=== PATIENT | male | born 1965 ===

== ENCOUNTER 2018-10-27 18:27 | Emergency (ER) | payer SELFPAY ==
[2018-10-27 18:30] VITALS: BP 138/84; PULSE 72; RESP 20; TEMP 36.8; O2SAT 100
--- NOTE | 2018-10-27 18:49 | NUR.NOTE ---
Mental health worker in with ptNursing Note:
--- NOTE | 2018-10-27 19:31 | ED.GENADUL_ITS ---
Discharge Plan Disposition Patient Disposition: HOME Condition: Good Discharge Details Chief Complaint: PsychEval Clinical Impression: Worried well, Acute paranoia Primary Care Provider: Rosaura Landis ED Provider: Hernando Gonzalez Home Meds and New Rx's Prescriptions: No Action No Known Home Meds RF: 0 Discharge Instructions Instructions: Anxiety (ED) Additional Instructions: As we discussed together please answer the door when over the mental health worker comes to your house. Please contact your insurance group for your medications. Please follow-up with your mental health advisors as he stated he would. If you notice any worsening of your symptoms, or any new symptoms such as vomiting, diarrhea, fever, chills, shortness of breath, chest pain, numbness, weakness, or fainting , please return immediately to the emergency department for reevaluation. Please follow up with your primary care provider as soon as possible for reassessment and reevaluation. As always, it was a pleasure participating in your medical care today. Referrals: Rosaura Landis, CIRCULAR DISTRIBUTOR [Primary Care Provider] - Medical Decision Making This is a 53-year-old male with past medical history of schizophrenia who presents today for evaluation by court ordered evaluation. Brought in by police. Patient came willingly, with no complication, apprehension, or difficulty. Mental health stated on an outpatient basis that he was eating less, not taking his medications. The patient does demonstrate some paranoia stating that he is worried that some food might be poisoned however he is still eating, most recent meal was this morning which was a peanut butter and jelly sandwich which he said he had with no difficulty. He states he is willing to still eat, but is just cautious about the things that he eats. The patient denies any homicidal or suicidal ideations. He states that he does not want to take his medications secondary to concerns of insurance fraud and chronic card fraud for which she has had issues with in the past. Patient does not feel that anyone is chasing after him, that there are third parties out to get him, that there are any other components endangering his life. He states that he feels very safe at home, and has no significant apprehension while at home. He denies any nausea, vomiting, diarrhea, headache, neck pain, back pain, chest pain, shortness of breath, numbness, tingling, or weakness. Physical exam demonstrates normal neurologic exam, no evidence of cachexia, no evidence of si gnificant electrolyte abnormality with a negative Chvostek sign, no evidence of tetany or spasm, and no signs of clinical dehydration or significant malnourishment. The patient is asking to hold off on blood test and less emergently needed, and at this time I do not see any emergent indication for further laboratory workup. He is a and O x4, shows no signs of acute severe paranoia, severe schizophrenia, or severe altered mental status. With no signs of severe mental instability, a very pleasant patient who is willing to follow any of our requests or demands, showing no signs of significant abnormality on exam or current clinical picture, I do not think that mandated forced EE is clinically indicated or warranted at this time. Although patient certainly does have some very mild paranoia, he is otherwise completely normal and his mental status, and at this time shows no present harm to himself or others. Feel that he is well within his personal rights to make his decisions. [facility] has come and evaluated the patient, and will follow up with their recommendations. 8:16 PM The patient has been seen and assessed by [facility]. Upon their assessment they do do not feel that there is a current medical or mental indication for emergency evaluation and forced transfer management or admission. The patient continues to be stable, pleasant, and follows all commands or requests. He at this time does not pose a risk to himself or others per his stated thoughts and clinical disposition. The patient states that he will very willingly see mental health when they come to his house, contact his insurance company to take care of any problem number and eat food that is given to him. He with his follow-up with his doctor on an outpatient basis. The patient is currently clinically safe, and shows no emergent psychiatric component at this time of evaluation I feel he can be safely discharged home. Mental health agrees with the plan. I have extensively reviewed the treatment plan and discharge instructions with the patient. I have addressed all patient concerns at this time. The patient was made aware of what symptoms to monitor for that would warrant a return to the emergency department. Discussed the plan with the patient, they demonstrate verbal understanding and agreement with our assessment and plan at this time. HPI General Date/Time Provider Initiated Documentation: 10/27/18 18:57 . HPI Narrative: This is a 53-year-old male with a past medical history of schizophrenia, who presents today for psychiatric evaluation. Per his outpatient mental health advocates he has been decreasing what he normally eats at home, he has been slightly more paranoid than normal, and he has been not taking his home medications. A court order was written for the patient to be brought in by police for evaluation in the ED by mental health. The patient came without incident or difficulty. Currently the patient has no complaints whatsoever. He denies any homicidal or suicidal ideations. He does admit to some mild nervousness with the eating stating that he is worried that food in general may be poison, however he does feel very comfortable eating peanut butter and jelly. He recently had a peanut butter and jelly sandwich this [facility] without difficulty. He states that he has not been taking his medications because he is worried that if he does try to purchase them or utilize his insurance there may be concern for mild insurance fraud or credit card fraud as he has had financial problems in the past. He does not fear fearful, he states that he does not feel that anyone is out to get him, he feels safe in his home, and he is extremely cooperative. He denies any other complaints at this time. No other modifying factors. Related Data Home Medications Medication Instructions Recorded Confirmed Unknown [No Known Home Meds] 10/27/18 10/27/18 Allergies Allergy/AdvReac Type Severity Reaction Status Date / Time Penicillins Allergy Unverified 10/27/18 18:33 General Stated Complaint: PsychEval KAREN: 2 Review of Systems Review of Systems All systems reviewed & are unremarkable except as noted in HPI and below PFSH Social History Smoking/Tobacco Use Status: Current every day Alcohol Intake: never Substance use type: does not use Do you feel safe at home: Yes Do you feel safe in your relationship?: Yes Exam Narrative Exam Narrative: 1.Const: thin, Well-developed, appearing stated age 2.Eyes: PERRL, no conjunctival injection, and symmetrical lids. 3.ENT: Atraumatic external nose and ears. Moist MM. Neck: Symmetric, trachea midline, No thyromegaly. 4.CVS: +S1/S2, No murmurs or gallops. Peripheral pulses 2+ and equal in all extremities. Brisk capillary refill in all extremities. 5.RESP: Unlabored respiratory effort. Clear to auscultation bilaterally. No wheezes rales or rhonchi 6.GI: Soft, Nontender/Nondistended, No hepatosplenomegaly. No guarding or rebound. 7.MSK: Normocephalic/Atraumatic, Extremities w/o deformity or ttp No cyanosis or clubbing, Normal movement of all extremities 8.Skin: Warm, Dry. No rashes or lesions. 9.Neuro: test and research reactor operator II-XII grossly intact. Sensation grossly intact, no focal neurologic deficits. No signs of focal neurologic deficit, no significant abnormalities. 10.Psych: (AAO) x3. Patient does appear minimally nervous however he has no homicidal or suicidal ideations. No flight of ideas, pressured speech, perseverations, or other abnormalities. Course Vital Signs Temperature 36.8 C 10/27/18 18:30 Pulse 72 10/27/18 18:30 Respiratory Rate 20 10/27/18 18:30 Blood Pressure 138/84 10/27/18 18:30 Pulse Oximetry 100 10/27/18 18:30 Temperature 36.8 C 10/27/18 18:30 Pulse 72 10/27/18 18:30 Respiratory Rate 20 10/27/18 18:30 Respiratory Effort Non-Labored 10/27/18 18:30 Blood Pressure 138/84 10/27/18 18:30 Pulse Oximetry 100 10/27/18 18:30 Oxygen Delivery Method Room Air 10/27/18 18:30 Oxygen Flow Rate 0 10/27/18 18:30 Pain Level 0 10/27/18 18:30
--- NOTE | 2018-10-27 19:52 | PDOC.MHCN ---
Date of service: 10/27/18 Time of Service: 19:53 Mental Health Crisis Note Presenting Issue How did you arrive at the ED and why did you come: Ciro arrived at the emergency room at [facility] due to a warrant that was filed in [facility]. Ciro lives in [place] just past the cut-off line for [employer] to get. Ciro has a history of major mental illness and has been off of medication. Questions of the medical and psychological health have progressed for several months and a warrant was signed by a mine shifter to look into the concerns that neglecting certain parts of his daily living routine could potentially present risks of harm to himself or others. Precipitating Factors Ciro denies that he is suicidal or homicidal at this time. He denies having any recent history of mental health issues as he reports his last psychological hospitalization was 12 years ago. Historically he has been a stable consumer of METAL ROLLING MILL OPERATOR services at [facility]. Ciro did present with signs of paranoia when discussing his health insurance and reason for not running water in his house. However, when discussing concerns of the running water and need for health insurance, he was able to agree that getting the health insurance back and the pipes fixed could be a good opportunity to address the concerns. He also confirmed his understanding that if he continues to neglect his needs through continuing to not run water and/or preventing himself from having health insurance could lead to another evaluation that could have a firmer line and level of expectations of treatment engagement. He denies auditory or visual hallucinations. He reported that he identified the METAL ROLLING MILL OPERATOR worker as an alien because she was new to him and he had never seen her before. Therefore, memory recall of immediate and recent events was fair. He also reported hearing other noises at times that disrupt him like dogs and roosters. After consulting with the doctor, it was determined that there are not any immediate risks of his mental health or medical stability at this time to require further involuntary treatment at this time. Disposition BEHAVIOR: cooperative, low voice tone, slightly tangential in thought, but able to make associations of ideas. EYE CONTACT: fair MOOD: depressed AFFECT: flat APPETITE: poor SLEEP(trouble falling/staying asleep: reports five to six hours per night Plan Ciro will return to his home. He will let METAL ROLLING MILL OPERATOR workers in his house to talk with him. He agrees to get his health insurance back with a rn case manager hospice to help him get that need addressed. He also reports he will see his psychiatrist earlier to discuss his reasons for stopping the Abilify. [facility] will continue to monitor Bill and/or follow-up with him as needed to help him get back on track with treatment. Signature Clinician's Name/Title: Zion Douglas [facility]
--- NOTE | 2018-10-27 20:08 | PDOC.MHCN_ITS ---
Date of service: 10/27/18 Time of Service: 19:53 Mental Health Crisis Note Presenting Issue How did you arrive at the ED and why did you come: Ciro arrived at the emergency room at [facility] due to a warrant that was filed in [facility]. Ciro lives in [place] just past the cut-off line for [place] [facility] to get. Ciro has a history of major mental illness and has been off of medication. Questions of the medical and psychological health have progressed for several months and a warrant was signed by a registration clerk to look into the concerns that neglecting certain parts of his daily living routine could potentially present risks of harm to himself or others. Precipitating Factors Ciro denies that he is suicidal or homicidal at this time. He denies having any recent history of mental health issues as he reports his last psychological hospitalization was 12 years ago. Historically he has been a stable consumer of REGIONAL EDUCATION COORDINATOR services at [facility]. Ciro did present with signs of paranoia when discussing his health insurance and reason for not running water in his house. However, when discussing concerns of the running water and need for health insurance, he was able to agree that getting the health insurance back and the pipes fixed could be a good opportunity to address the concerns. He also confirmed his understanding that if he continues to neglect his needs through continuing to not run water and/or preventing himself from having health insurance could lead to another evaluation that could have a firmer line and level of expectations of treatment engagement. He denies auditory or visual hallucinations. He reported that he identified the REGIONAL EDUCATION COORDINATOR worker as an alien because she was new to him and he had never seen her before. Therefore, memory recall of immediate and recent events was fair. He also reported hearing other noises at times that disrupt him like dogs and roosters. After consulting with the doctor, it was determined that there are not any immediate risks of his mental health or medical stability at this time to require further involuntary treatment at this time. Disposition BEHAVIOR: cooperative, low voice tone, slightly tangential in thought, but able to make associations of ideas. EYE CONTACT: fair MOOD: depressed AFFECT: flat APPETITE: poor SLEEP(trouble falling/staying asleep: reports five to six hours per night Plan Ciro will return to his home. He will let REGIONAL EDUCATION COORDINATOR workers in his house to talk with him. He agrees to get his health insurance back with a pillowcase sewer to help him get that need addressed. He also reports he will see his psychiatrist earlier to discuss his reasons for stopping the Abilify. [facility] will continue to monitor Bill and/or follow-up with him as needed to help him get back on track with treatment. Signature Clinician's Name/Title: Zion Douglas [facility]
[2018-10-27 20:32] VITALS: BP 115/79; PULSE 67; RESP 16; TEMP 36.7; O2SAT 98
--- NOTE | 2018-10-28 08:01 | PDOC.ERCMPRO ---
Care Management Progress Note 10/28-Ronak was transported home by [facility] last evening. This CM completed RCT authorization form (patient does not have insurance) and faxed to [facility] this am. [facility] will pay for the transportation.
--- NOTE | 2018-10-28 08:02 | CMPROGNOTE_ITS ---
Care Management Progress Note 10/28-Ronak was transported home by [facility] last evening. This CM completed RCT authorization form (patient does not have insurance) and faxed to [facility] this am. [facility] will pay for the transportation.
== END 2018-10-27 20:30 | disposition home or self-care (01) ==
PROVIDERS: Emergency Provider Student in an Organized Health Care Education/Training Program; PCP Nurse Practitioner Family
DX: F22 Delusional disorders (principal); F41.9 Anxiety disorder, unspecified
CPT/HCPCS: 99285; 99284

== ENCOUNTER 2019-10-05 19:11 | Emergency (ER) | payer MEDICARE, SELFPAY ==
[2019-10-05 19:31] VITALS: BP 137/97; PULSE 73; RESP 16; TEMP 36.2; O2SAT 100
[2019-10-05] MEDS: LORazepam 2 MG/ML VIAL IM (19:31)
[2019-10-05] MEDS: diphenhydrAMINE 50 MG/ML VIAL 25 MG IM (19:31)
[2019-10-05] MEDS: Haloperidol 5 MG/ML VIAL IM (19:31)
--- NOTE | 2019-10-05 20:03 | PDOC.MHCN ---
Date of service: 10/05/19 Time of Service: 20:03 Mental Health Crisis Note Presenting Issue How did you arrive at the ED and why did you come: W arrived tonight via [facility] after a warrant was completed by [facility], Jed Elias. Rc signed the warrant and [facility] delivered to VS. Sgt Diana gathered a team and went to Zabrina's home to bring him to [facility] because he lives in [place]. Precipitating Factors W is a safety risk to himself due to her paranoia, delusions, and hallucinations. He has not eaten properly, if at all in an unknown span of time even with 3 times a week check in's and delivery of food and water. ENVIRONMENTAL ENGINEER Nurse, Rosario Benson reported that w has lost anywhere from 75-100lbs. Because of his mental status he puts himself at risk of harm due to malnourishment. Disposition BEHAVIOR: W came into the the ER with 3 [facility] troopers. It was reported that he was not cooperative when coming to [facility] and all 3 stayed with him. He was loud upon entering as there were many waiting for his arrival due to the reports of not being cooperative. He was stating Hello! Bojour everyone. He refused to accept his patient rights that were offered to him by this clinician. He was borderline disrespectful making comments about roselissett and making reference to this clinicians weight. He was physically and then chemically restrained. EYE CONTACT: W attempted to make eye contact but it was challenging for him to do so while restrained. MOOD: delusional and inappropriate. AFFECT: flat and non responsive APPETITE: paranoid about food so intake has likely been limited if any. SLEEP(trouble falling/staying asleep: unknown Plan W is placed on an EE and will be held pending admission to an inpatient facility to address his psychiatric needs. A huddle was had with Dot Net Developer, Mariel Gonzalez with traditional limitations for the evening. ENVIRONMENTAL ENGINEER will re-assess tomorrow as needed and required. W is still being medically cleared when I left. Provisional Diagnosis Schizophrenia Signature Clinician's Name/Title: Arin Fuentes, MS, [facility] Emergency Services Clinician
--- NOTE | 2019-10-05 20:06 | W.EDRSTF2F ---
Date of service: 10/05/19 Time of Service: 20:06 Restraint Face to Face Time of Face to Face Face to Face: Time of Face to Face: 20:07 Patient's Immediate Situation Requiring Restraints/Seclusion: Harm to Patient (Patient was a danger to himself and staff and others) Patient Response to Restraints: Remains Agitated and Restless Patient's Medical & Behavioral Condition: Patient is a notable schizophrenic, with delirium. He is a harm to himself and others. For the patient safety he did not tolerate the physical restraints, was concerned that he may harm himself. Chemical restraint was used for sedation. Patient tolerated this well. Physical restraints were stopped Need for Continuation of Restraints Has Been Assessed: Restraints Terminated
--- NOTE | 2019-10-05 20:10 | CMSP_ITS ---
- If Service Date Differs Date of service: 10/05/19 Time of Service: 20:11 Care Management Safety Plan Ronak Dobbins is a 54 year old gentleman with a history of schizophrenia and is receiving services through [facility] ([facility]ILY [facility]) through the [place] office. Patient was brought to [facility] as he is a resident of [place], [place]. Per [facility] he was brought in by three [facility] Police officers on a Warrant originating in [facility].According to [facility] patient has lost a lot of weight, he has not been caring for self, and has been delusional. CM reviewed patient with patient arrives cachetic, agitated, disoriented and delusional. Due to risk to self the patient was restrained please see restraint documentation. Patient is not medically cleared at this time and will need a work up for medical clearance prior to psychiatric placement. INVOLUNTARY FOR INPATIENT PSYCHIATRIC STABILIZATION. Safety plan has been established to meet the needs of the patient, and consideration of the care team, to adhere to patient goals, identify restrictions based on behavioral status, address nutrition, and determine allowed personal belongings, tools for hygiene and personal care. Determine level of activity including ambulation, level of supervision, visitors, and determine privileges based on behaviors and level of engagement by pt. SAFETY PLAN: 1. Will remain on SI/HI precautions. In Paper Clothes 2. Will remain in room under direct supervision of one-on-one staff at all times provided by [employer]; RENETTA, ROAD GANG SUPERVISOR editor index. Per [facility] patient has a history of elopement and is at risk for repeat attempt. 3. May have paper cups, plates, finger foods as well as a cardboard spoon 4. Follow [facility] Management of the Admitted Behavioral Health Patient policy. 5. Comfort bath system only. 6. No personal belongings 7. Visitors-legal account manager sales representative, [facility]ARDIAN FAMILY MEMBER, X Ray Equipment Mechanic 8. Activities: Soft tip markers, paper, books, and music. 9. Bathroom privileges with supervision 10. Phone: None at this time 11. Due to INVOLUNTARY status, if patient wishes to leave [facility], the [facility] draw off worker must be contacted to re-evaluate patient prior to patient exiting the building. Patient is currently involuntarily at [facility] and seeking inpatient admission when a bed becomes available. [facility] Frontline Script Supervisor will continue seeking placement. Please contact the Magazine Keeper Granite Polisher ([phone]) and [facility] Script Supervisor ([phone]) for any needed changes in the Safety Plan. Safety plan has been provided to interdepartmental care team.
--- NOTE | 2019-10-05 20:10 | PDOC.CMSAFED ---
- If Service Date Differs Date of service: 10/05/19 Time of Service: 20:11 Care Management Safety Plan Ronak Dobbins is a 54 year old gentleman with a history of schizophrenia and is receiving services through [facility] Community Restorative Treatment (CORPORATE WEBMASTER) through the [place] office. Patient was brought to [facility] as he is a resident of [place], [place]. Per [facility] he was brought in by three [facility] Police officers on a Warrant originating in [facility].According to [facility] patient has lost a lot of weight, he has not been caring for self, and has been delusional. CM reviewed patient with patient arrives cachetic, agitated, disoriented and delusional. Due to risk to self the patient was restrained please see restraint documentation. Patient is not medically cleared at this time and will need a work up for medical clearance prior to psychiatric placement. INVOLUNTARY FOR INPATIENT PSYCHIATRIC STABILIZATION. Safety plan has been established to meet the needs of the patient, and consideration of the care team, to adhere to patient goals, identify restrictions based on behavioral status, address nutrition, and determine allowed personal belongings, tools for hygiene and personal care. Determine level of activity including ambulation, level of supervision, visitors, and determine privileges based on behaviors and level of engagement by pt. SAFETY PLAN: 1. Will remain on SI/HI precautions. In Paper Clothes 2. Will remain in room under direct supervision of one-on-one staff at all times provided by CPSO; RENETTA, SEARCH LEAD reel operator. Per [facility] patient has a history of elopement and is at risk for repeat attempt. 3. May have paper cups, plates, finger foods as well as a cardboard spoon 4. Follow [facility] Management of the Admitted Behavioral Health Patient policy. 5. Comfort bath system only. 6. No personal belongings 7. Visitors-legal sales representative metals, CORPORATE WEBMASTER, Human Resources Communications Manager 8. Activities: Soft tip markers, paper, books, and music. 9. Bathroom privileges with supervision 10. Phone: None at this time 11. Due to INVOLUNTARY status, if patient wishes to leave [facility], the [facility] powder worker must be contacted to re-evaluate patient prior to patient exiting the building. Patient is currently involuntarily at [facility] and seeking inpatient admission when a bed becomes available. [facility] Frontline Tenderizer Tender will continue seeking placement. Please contact the Mechanical Engineering Intern Historian Dramatic Arts ([phone]) and [facility] Tenderizer Tender ([phone]) for any needed changes in the Safety Plan. Safety plan has been provided to interdepartmental care team.
--- NOTE | 2019-10-05 20:50 | ED.GENADUL_ITS ---
Discharge Plan Disposition Patient Disposition: STILL A PATIENT Condition: Poor Discharge Details Chief Complaint: PsychEval Clinical Impression: Schizophrenia Primary Care Provider: Rosaura Landis ED Provider: Hernando Gonzalez Home Meds and New Rx's Prescriptions: No Action No Known Home Meds RF: 0 Discharge Data Discharge Date/Time-TO BE ENTERED AT DEPARTURE: 10/07/19 18:25 Medical Decision Making <Erick Stahl MD - Last Filed: 10/17/19 23:41> Patient in restraints and chemically sedated at the time of my evaluation. Still awake and somewhat agitated so left in restraints for the time being. I have reviewed records from his warrant. He is clearly decompensated to the point where he is unable to care for himself or be safe. He is completely emaciated. My plan will be to discontinue his restraints once he is sedated enough to be safe. Will obtain laboratory studies. Will file certificate of emergency exam for consideration of involuntary admission. Mental health is here. manager medical aware and safety plan in place. CPSO present. Note that during patient being taken into custody there was some question of a trooper coming into contact with patient's blood from a open injury on the trooper's hand. [place] was evaluated here in ED. I will send labs on this patient as a source patient. At 9:30 PM we were able to discontinue physical restraints. Laboratory studies have been obtained. Results will be reviewed when available. Will attempt to restart his Abilify in the morning. 08:20 - Patient slept the entire night. This morning he is awake and eating breakfast. Seems to understand that he will be here for further evaluation and understands that his behavior will determine use of restraints or not. Attempted conversation regarding use of restraints last night. Patient still has a lot of illogical and delusional thinking but is calm and cooperative at this point. Has agreed to restart his Abilify this morning. Care signed out to Dr. Ford. Medical Records Medical records reviewed: Yes I reviewed the patient's medical records. Lab Data Lab results reviewed: Yes I reviewed the patient's lab results. <Can Ford MD - Last Filed: 10/06/19 19:34> 8:00 --care signed out by Dr. Stahl. Please see Dr. Stahl and Dr. Gonzalez's documentation regarding initial ED presentation and course. --Labs reviewed and mild hypokalemia noted. Patient also with mild anemia. I suspect malnutrition may be contributing to these findings. Patient will be given potassium 20 mEq orally. 18:30 --I spoke with on-call department mental health psychiatrist about patient's presentation and my concerns regarding need for ED evaluation. 19:30 -- Patient has remained stable and cooperative during the course of the day with no agitation or aggression. Awaiting psychiatric treatment facility placement. HPI <Erick Stahl MD - Last Filed: 10/17/19 23:41> General Mode of arrival: EMS . Date/Time Provider Initiated Documentation: 10/05/19 20:05 . Information obtained by: patient, police, RN/MD (mental health workers), RN notes reviewed and old records reviewed . HPI Narrative: Patient is here for mental health evaluation. He is a client of [facility]/[employer]. He had been stable for years on Abilify. Over the last year he has been off his medication and has been steadily declining and decompensating. At this point he is extremely paranoid, refuses to eat, refuses to allow medical or [employer] into his house. Forest Fire Management Officer issued a warrant today for emergency evaluation. He was combative with police and refused evaluation. He was eventually brought in by police in cuffs. On his arrival he was initially seen by Dr. Gonzalez. He ultimately ended up in four-point restraints and received Haldol/Ativan/Benadryl IM. Please see Dr. Gonzalez's byub-dl-ryuj note regarding restraint use. When I evaluated the patient he was still awake and a little agitated. I was able to have a discussion with him although it was not meaningful and was extremely tangential, random, nonsensical. Related Data Home Medications Medication Instructions Recorded Confirmed Unknown [No Known Home Meds] 10/27/18 10/27/18 Allergies Allergy/AdvReac Type Severity Reaction Status Date / Time Penicillins Allergy Unverified 10/27/18 18:33 General Stated Complaint: PsychEval KAREN: 2 Review of Systems <Erick Stahl MD - Last Filed: 10/17/19 23:41> Unobtainable due to mental condition PFS <Erick Stahl MD - Last Filed: 10/17/19 23:41> Medical History Schizophrenia (Chronic) Surgical History No significant past surgical history (Chronic) Social History Smoking/Tobacco Use Status: Current every day Alcohol Intake: never Substance use type: does not use Do you feel safe at home: Yes Do you feel safe in your relationship?: Yes Exam <Erick Stahl MD - Last Filed: 10/17/19 23:41> Narrative Exam Narrative: Vitals: Afebrile. Mildly hypertensive. Normal vitals and room air pulse oximetry. Const: Thin, emaciated male in four-point restraints. HEENT: Abrasions noted to forehead and face. No bony tenderness elicited. Eyes: Normal conjunctiva and sclera. PERRL and EOMI. Neck: Supple. Trachea midline. Lungs: Normal respiratory effort. Lungs are clear. Chest wall non-tender. Cor: RRR without murmur/gallop. Good radial pulses. GI: Soft. NT/ND. No guarding or rebound. Neuro: Awake and alert, not cooperative with orientation questions but knows who he is and where he is. Normal speech. Cranial nerves II - XII grossly intact. No gross motor or sensory deficit. Ext: No C/C/E. No deformity or tenderness noted. Skin: Warm and dry. Multiple abrasions on face and upper extremities. No lacerations. Psych: Paranoid, tangential, nonsensical with no insight or judgment into condition. Course <Erick Stahl MD - Last Filed: 10/17/19 23:41> Vital Signs Vital signs: Vital Signs Temperature 97.2 F L 10/05/19 19:31 Pulse 73 10/05/19 19:31 Respiratory Rate 16 10/05/19 19:31 Blood Pressure 137/97 H 10/05/19 19:31 Pulse Oximetry 100 10/05/19 19:31 Temperature 97.2 F L 10/05/19 19:31 Pulse 73 10/05/19 19:31 Respiratory Rate 16 10/05/19 19:31 Respiratory Effort Non-Labored 10/05/19 19:46 Blood Pressure 137/97 H 10/05/19 19:31 Blood Pressure Position Supine 10/05/19 19:31 Pulse Oximetry 100 10/05/19 19:31 Oxygen Delivery Method Room Air 10/05/19 19:31 Oxygen Flow Rate 0 10/05/19 19:31 Comment 10/05/19 19:31 Sign Out <Erick Stahl MD - Last Filed: 10/17/19 23:41> Sign Out Data: Sign Out Comment: Pending placement to psychiatric facility versus admitting upstairs while waiting second cert Last updated by Erick Stahl MD at 10/06/19 08:25 Sign Out Comment: Care signed out to Dr. Stahl with plan to await psychiatric treatment facility bed placement. Last updated by Can Ford MD at 10/06/19 20:04 Sign Out Comment: No events overnight. Patient slept without issue. Ambulatory this morning awaiting placement at psychiatric facility. Last updated by Erick Stahl MD at 10/07/19 08:23
[2019-10-05 21:30] LABS: Abs Immature Grans 0.02 k/cumm (0.0-0.09); Absolute Basophil Count 0.01 k/cumm (0.0-0.2); Absolute Eosinophil Count 0.03 k/cumm (0.0-0.7); Absolute Lymphocyte Count 1.03 k/cumm (1.2-3.4); Absolute Monocyte Count 0.27 k/cumm (0.11-0.7); Absolute Neutrophil Count 3.06 k/cumm (1.2-6.7); Basophils % 0.2; Eosinophils % 0.7; HCT 33.4 % (40.0-50.0); HGB 11.4 g/dL (13.5-17.5); Immature Grans % 0.5 %; Lymphocytes % 23.3; Mean Corp. HGB Concentration 34.1 g/dL (32.0-36.0); Mean Corpuscular Hemoglobin 30.4 pg (27.0-33.0); Mean Corpuscular Volume 89.1 fL (80-95); Mean Platelet Volume 9.4 fL (8.0-11.0); Monocytes % 6.1; Neutrophils % 69.2; Platelet Count 175 x1000/uL (130-400); RBC 3.75 m/cumm (4.50-6.00); White Blood Cell Count 4.42 k/cumm (4.4-10.8)
[2019-10-05 21:53] LABS: HIV 1/2 Ab Rapid Negative (Negative)
[2019-10-05 21:59] LABS: ALT 20 U/L (16-63); AST 25 U/L (15-37); Albumin 3.8 g/dL (3.4-5.0); Alkaline Phosphatase 63 U/L (46-116); Anion Gap 7.9 mmol/L (3-11); BUN 18 mg/dL (7-18); Bilirubin, Total 0.4 mg/dL (0.2-1.0); CO2 26.1 mmol/L (21.0-32.0); CREATININE 0.87 mg/dL (0.70-1.30); Calcium 8.8 mg/dL (8.5-10.1); Chloride 104 mmol/L (98-107); ETHANOL BLOOD < 3.0 mg/dL (<3); Glucose 111 mg/dL (74-106); Potassium 3.3 mmol/L (3.5-5.1); Sodium 138 mmol/L (136-145); TSH (W/Ref FT4) 2.56 uIU/mL (0.36-3.74); Total Protein 6.5 g/dL (6.4-8.2)
[2019-10-05 22:34] VITALS: PULSE 64; RESP 16; O2SAT 99
[2019-10-05 23:00] LABS: Salicylate < 2.8 mg/dL (2.8-20.0)
[2019-10-05 23:01] LABS: Acetaminophen < 2 ug/mL (10-30)
--- NOTE | 2019-10-06 02:13 | NUR.NOTE ---
Nursing Note: Requested information faxed to [facility] fatoumata Suarez for review, including demographics, H&P. UA/UDS not yet obtained, will send when resulted.
[2019-10-06] MEDS: ARIPiprazole 15 MG TAB PO (08:33)
[2019-10-06 09:08] LABS: Bilirubin Small (Negative); Blood Negative (Negative); Clarity Clear (Clear); Glucose Negative (Negative); Ketones Trace mg/dL (Negative); Leukocyte Esterase Negative (Negative); Nitrite Negative (Negative); Specific Gravity >= 1.030 (1.005-1.025); Urobilinogen 0.2 EU/dL (Up TO 0.2)
[2019-10-06 09:24] LABS: *AMPHETAMINES SCREEN URINE Negative (Negative); *BARBITURATES SCREEN URINE Negative (Negative); *BENZODIAZEPINES SCREEN URINE Negative (Negative); Cannabinoids THC Negative (Negative); Cocaine Screen,Urine Negative (Negative); METHADONE URINE SCREEN Negative (Negative); OPIATES URINE SCREEN Negative (Negative)
[2019-10-06 09:26] LABS: Tricyclic Antidepressants Negative (Negative)
--- NOTE | 2019-10-06 09:26 | CMSP_ITS ---
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 Per HP he was brought in by three [facility] Police officers on a Warrant originating in [facility], but is a current resident of [place], [place]. Assessment: Weight loss, self-neglect, presenting with ongoing delusional thoughts. Patient arrived cachetic, agitated, disoriented and delusional. Patient is not medically cleared at this time and will need a work up for medical clearance prior to psychiatric placement. 0845 Curt, [facility] called to report he would follow up and let this automatic typewriter inspector know who would be screening Ronak today and working on placement. 1045 Shukri[facility]. Shukri reported that attempts have been made to EE Ronak for some time due to living condition concerns and presentation, also that Ronak has not been taking medications for the last 13 months. Shukri reports that Ronak became aggressive with police officers last night which supported INVOLUNTARY status and hold. Ronak has lost weight even with meal delivered and has paranoid thoughts disrupting his functioning. 1100 Huddle: Shukri reports assessment was limited due to Ronak hiding under a sheet in the room. 1140 Shukri called to report speaking with Purvi Benson [facility] Psychiatric audit manager (P# [phone]) who requested stat A1C Hemoglobin to provide to [facility] and [facility] to encourage patient admission. Purvi is reportedly working Ewelina Hyaes at [facility]. Shukri reports once available, lab values will need to be faxed to Purvi. Shukri reports 2nd Certification will take place at 1800 tonight. INVOLUNTARY FOR INPATIENT PSYCHIATRIC STABILIZATION. Safety plan has been established to meet the needs of the patient, and consideration of the care team, to adhere to patient goals, identify restrictions based on behavioral status, address nutrition, and determine allowed personal belongings, tools for hygiene and personal care. Determine level of activity including ambulation, level of supervision, visitors, and determine privileges based on behaviors and level of engagement. Ronak ate breakfast, read the paper and slept through the night. He did not fully engage with EBONY Watt of [facility], but did present with ongoing delusion thoughts per Shukri's report. His safety plan will continue to be limited at this time for a period of further observation due to original presentation. SAFETY PLAN: 1. Will remain on SI/HI precautions. In Paper Clothes 2. Will remain in room under direct supervision of one-on-one staff at all times provided by CPSO; RENETTA, CUSTOMER CARE REPRESENTATIVE metal fence erector. Per [facility] patient has a history of elopement and is at risk for repeat attempt. 3. May have paper cups, plates, finger foods as well as a cardboard spoon 4. Follow [facility] Management of the Admitted Behavioral Health Patient policy. 5. Comfort bath system only. 6. No personal belongings 7. Visitors-legal brand representative, ACTIVITIES CONCIERGE, Prepress Proofer 8. Activities: Soft tip markers, paper, books, and music. 9. Bathroom privileges with supervision 10. Phone: limited to legal contact at this time. 11. Due to INVOLUNTARY status, if patient wishes to leave [facility], the [facility] sex worker or escort must be contacted to re-evaluate patient prior to patient exiting the building. Patient is currently involuntarily at [facility] and seeking inpatient admission when a bed becomes available. [facility] Frontline Investigator Internal Revenue will continue seeking placement. Per Shukri; HP: Bed Placement Coordination as follows: [facility]: No Beds [facility] [place]: Will review again tomorrow. [facility]: Will review tomorrow. [facility]: Will not consider until voluntarily taking medications. [facility]: Did not answer per [facility]. [facility] Missile Control Pilot, Janette is aware as well as Ewelina Hayes. [facility] will provide coordination and funding of transportation through the Meal Room Hand's Dept due to INVOLUNTARY status. Please contact the Registered Nurse Surgical Services Missile Control Pilot ([phone]) and [facility] Investigator Internal Revenue ([phone]) for any needed changes in the Safety Plan. Safety plan has been provided to interdepartmental care team.
--- NOTE | 2019-10-06 09:26 | PDOC.CMSAFED ---
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 Per HP he was brought in by three [facility] Police officers on a Warrant originating in [facility], but is a current resident of [place], [place]. Assessment: Weight loss, self-neglect, presenting with ongoing delusional thoughts. Patient arrived cachetic, agitated, disoriented and delusional. Patient is not medically cleared at this time and will need a work up for medical clearance prior to psychiatric placement. 0845 Curt, [facility] called to report he would follow up and let this development writer know who would be screening Ronak today and working on placement. 1045 Shukri; [facility]. Shukri reported that attempts have been made to EE Ronak for some time due to living condition concerns and presentation, also that Ronak has not been taking medications for the last 13 months. Shukri reports that Ronak became aggressive with police officers last night which supported INVOLUNTARY status and hold. Ronak has lost weight even with meal delivered and has paranoid thoughts disrupting his functioning. 1100 Huddle: Shukri reports assessment was limited due to Ronak hiding under a sheet in the room. 1140 Shukri called to report speaking with Purvi Benson [facility] Psychiatric paper sales manager (P# [phone]) who requested stat A1C Hemoglobin to provide to [facility] and [facility] to encourage patient admission. Purvi is reportedly working Ewelina Hayes at [facility]. Shukri reports once available, lab values will need to be faxed to Purvi. Shukri reports 2nd Certification will take place at 1800 tonight. INVOLUNTARY FOR INPATIENT PSYCHIATRIC STABILIZATION. Safety plan has been established to meet the needs of the patient, and consideration of the care team, to adhere to patient goals, identify restrictions based on behavioral status, address nutrition, and determine allowed personal belongings, tools for hygiene and personal care. Determine level of activity including ambulation, level of supervision, visitors, and determine privileges based on behaviors and level of engagement. Ronak ate breakfast, read the paper and slept through the night. He did not fully engage with EBONY Watt of [facility], but did present with ongoing delusion thoughts per Shukri's report. His safety plan will continue to be limited at this time for a period of further observation due to original presentation. SAFETY PLAN: 1. Will remain on SI/HI precautions. In Paper Clothes 2. Will remain in room under direct supervision of one-on-one staff at all times provided by CPSO; RENETTA, DRAFTER (CAD) ELECTRICAL ancient art curator. Per [facility] patient has a history of elopement and is at risk for repeat attempt. 3. May have paper cups, plates, finger foods as well as a cardboard spoon 4. Follow [facility] Management of the Admitted Behavioral Health Patient policy. 5. Comfort bath system only. 6. No personal belongings 7. Visitors-legal franchise sales representative, EMBEDDED SYSTEMS ENGINEER, Tallier 8. Activities: Soft tip markers, paper, books, and music. 9. Bathroom privileges with supervision 10. Phone: limited to legal contact at this time. 11. Due to INVOLUNTARY status, if patient wishes to leave [facility], the [facility] bottle line worker must be contacted to re-evaluate patient prior to patient exiting the building. Patient is currently involuntarily at [facility] and seeking inpatient admission when a bed becomes available. [facility] Frontline Reimbursement Auditor will continue seeking placement. Per Shukri; HP: Bed Placement Coordination as follows: [facility]: No Beds [facility] [place]: Will review again tomorrow. [facility]: Will review tomorrow. [facility]: Will not consider until voluntarily taking medications. [facility]: Did not answer per [facility]. [facility] Supervisor Prep, Janette is aware as well as Ewelina Hayes. [facility] will provide coordination and funding of transportation through the Rewinder Operator Helper's Dept due to INVOLUNTARY status. Please contact the Tooth Cutter Clutch Supervisor Prep ([phone]) and [facility] Reimbursement Auditor ([phone]) for any needed changes in the Safety Plan. Safety plan has been provided to interdepartmental care team.
[2019-10-06 09:33] LABS: Bacteria Few HPF (Negative); C & S Indicated? No; Casts 0-2 Fine Granular LPF (Negative); Crystals Few Amorphous HPF (Negative); Epithelial Cells Negative HPF (Negative); Mucus Heavy (Negative); Other Cells Rare Renal (Negative); RBC Negative HPF (0-2)
--- NOTE | 2019-10-06 10:13 | PDOC.MHCN ---
Date of service: 10/06/19 Time of Service: 10:13 Mental Health Crisis Note Presenting Issue How did you arrive at the ED and why did you come: Patient was brought to the ED by [facility] on a warrant for Involuntary Hospitalization. Precipitating Factors Patient had not been eating and stating today he believed his food was poisoned. He is diagnosed with Schizophrenia and has not been taking medication for an extended period of time. Disposition BEHAVIOR: Patient was lying in the exam room with a sheet pulled over his head. He refused to make eye contact but answered a few questions before saying he would not answer anymore. He stated he was God when asked if he was eating replied How are you eating. When asked about sleeping replied,How are you sleeping. When asked if he knew why he was in the Ed he said because he was sick, but would not elaborate. EYE CONTACT: Refused to make eye contact. MOOD: Subdued because of medication. AFFECT: Flat APPETITE: Unknown SLEEP(trouble falling/staying asleep: Unknown Plan Maintain EE status and obtain psychiatric placement.
[2019-10-06 11:04] VITALS: BP 107/70; PULSE 72; RESP 17; TEMP 36.6; O2SAT 99
[2019-10-06 11:37] LABS: Hemoglobin A1C 5.3 % (3.8-5.6)
[2019-10-06] MEDS: Potassium Chloride 20 MEQ TABCR PO (18:38)
--- NOTE | 2019-10-06 18:49 | PDOC.MHCN_ITS ---
Date of service: 10/06/19 Time of Service: 18:57 Mental Health Crisis Note Presenting Issue How did you arrive at the ED and why did you come: Patient is waiting in ED for placement and is seen this evening by [facility] psychiatrist for a second certification of the EE. Precipitating Factors Patient has delusions and is unable to care for himself in community. Report from FILM LOADER program is that he has not been eating and has been wandering in the cold. P brought him in and he has been in the ED for 23 hours Disposition BEHAVIOR: He is cooperative during the second certification interview. EYE CONTACT: He AFFECT: He made good eye contact with the interviewing doctor. APPETITE: He has eaten today. SLEEP(trouble falling/staying asleep: Reports he sleeps about 4 hours. Plan The doctor certified him for an EE. He will wait here in the hospital until a placement opens up. Signature Clinician's Name/Title: Jazzmine Wilkinson, [facility] Emergency Services Clinician.
[2019-10-06 19:00] VITALS: BP 99/73; PULSE 78; RESP 16; TEMP 36.8; O2SAT 97
--- NOTE | 2019-10-06 23:33 | NUR.NOTE ---
Up to BR with steady gait. PO fluids provided.
--- NOTE | 2019-10-07 06:29 | NUR.NOTE ---
Up to BR with steady gait. [facility] called ED for update on pt.
[2019-10-07 08:59] LABS: Hepatitis B Surface Ag Negative (Negative)
[2019-10-07] MEDS: ARIPiprazole 15 MG TAB PO (09:26)
[2019-10-07 09:51] LABS: HIV-1/2 Ag & Ab Screen Negative (Negative); Hepatitis C Ab w Rflx HCV PCR Negative (Negative)
[2019-10-07 10:47] LABS: Prealbumin 12 mg/dL (20-40)
--- NOTE | 2019-10-07 11:23 | PDOC.MHCN_ITS ---
Date of service: 10/07/19 Time of Service: 11:24 Mental Health Crisis Note Presenting Issue How did you arrive at the ED and why did you come: Patient was brought to the ED on 10/04 by [facility] after he threatened HOME HEALTH OUTREACH COORDINATOR staff with a hammer. Staff were bringing him food which he did not eat because he believed it was poisoned. He was psychotic and delusional and was not taking medications because he did not believe he could afford them and believed they were poisoned as well. Precipitating Factors Patient had been becoming increasingly psychotic and delusional over the past year. He rodriguez reached a point where he would no longer make choices in his own best interest. He was not eating, going outside without boots or socks. Disposition BEHAVIOR: Patient was awake and alert today. He was standing in his room with the pants of his gown rolled up to above his knees. He is taking medications and reports he is doing better. Patient reports hearing his uncle talking to him, that 4 or 5 professional [employer] Wrestlers came to his place and brought him to the Ed. Patient had scratches and scars on his body and stated the tiddlewinks did that to him. He denied H/I or S/I. He has been taking Abillify 15 mg. a day. The rest of the conversation was all word salad from the patient. EYE CONTACT: Patient was able to maintain appropriate eye contact today. MOOD: Euthymic AFFECT: Unremarkable APPETITE: Patient reports eating all the meals provided him. SLEEP(trouble falling/staying asleep: Paient reports sleeping well. Plan Maintain on EE status and seek psychiatric placement for further treatment.
--- NOTE | 2019-10-07 15:30 | CMPROGNOTE_ITS ---
- If Service Date Differs Date of service: 10/07/19 Time of Service: 15:30 Care Management Progress Note S/O: Ronak remains in the emergency department, in involuntary status. He is cooperative and alert at this time, he is taking his medication and tolerating meals. CM reviewed the current safety plan there are no changes at this time. CM reviewed the plan with [facility] at [facility]. Ronak has been accepted at [facility]. Plan will be for him to be discharged there this evening between [id number]. [facility] is coordinating with Department of Mental Health transportation via [employer]. P: Discharge to [facility] this evening, transportation being arranged by [facility], [facility]. Plan to have the patient leave this evening between 1800 and 1830. CM provided update to ED provider and Granite Sandblaster Apprentice.
--- NOTE | 2019-10-07 15:30 | PDOC.ERCMPRO ---
- If Service Date Differs Date of service: 10/07/19 Time of Service: 15:30 Care Management Progress Note S/O: Ronak remains in the emergency department, in involuntary status. He is cooperative and alert at this time, he is taking his medication and tolerating meals. CM reviewed the current safety plan there are no changes at this time. CM reviewed the plan with [facility] at [facility]. Ronak has been accepted at [facility]. Plan will be for him to be discharged there this evening between 0507-2516. [facility] is coordinating with Department of Mental Health transportation via [employer]. P: Discharge to [facility] this evening, transportation being arranged by [facility], [facility]. Plan to have the patient leave this evening between 1800 and 1830. CM provided update to ED provider and Iv Technician.
[2019-10-07 17:05] VITALS: BP 126/86; PULSE 85; RESP 18; TEMP 37; O2SAT 100
[2019-10-11 09:27] LABS: Methylmalonic Acid 0.25 nmol/mL (<=0.40)
== END 2019-10-07 18:25 | disposition still patient (30) ==
PROVIDERS: Emergency Medicine; Student in an Organized Health Care Education/Training Program; Emergency Provider Student in an Organized Health Care Education/Training Program; PCP Nurse Practitioner Family
DX: F23 Brief psychotic disorder (principal); E87.6 Hypokalemia; T43.596A Underdosing of other antipsychotics and neuroleptics, initial encounter; Z91.128 Patient's intentional underdosing of medication regimen for other reason; Z78.1 Physical restraint status
CPT/HCPCS: 36415; 80053; 80186; 80307; 86803; 87340; 87389; 96372; 99285; 80320; 80329; 81003; 81015; 83036; 84134; 84443; 85025; 99284; J1200; J1630; J2060

== ENCOUNTER 2025-07-04 10:07 | Emergency (ER) | payer MEDICARE, SELFPAY ==
[2025-07-04 10:09] VITALS: BP 151/75; PULSE 88; RESP 16; TEMP 36.6; O2SAT 100
[2025-07-04] MEDS: Haloperidol 5 MG/ML VIAL IM (11:15)
[2025-07-04] MEDS: LORazepam 2 MG/ML VIAL IM (11:16)
[2025-07-04 11:40] LABS: Abs Immature Grans 0.02 10^3/uL (0.0-0.06); HCT 36.6 % (40.0-50.0); HGB 12.3 g/dL (13.5-17.5); Immature Grans % 0.5 %; MCH 30.5 pg (27.0-33.0); MCHC 33.6 % (32.0-36.0); MCV 91 fL (80-95); MPV 9.4 fL (8.0-11.0); Platelet Count 141 10^3/uL (130-400); RBC 4.03 10^6/uL (4.36-5.78); RDW 13.2 % (11.8-14.1); RDW-SD 44.0 fL; WBC 4.31 10^3/uL (4.4-10.8)
[2025-07-04 12:01] LABS: ALT 17 U/L (10-49); AST 26 U/L (<34); Albumin 4.3 g/dL (3.2-5.0); Alkaline Phosphatase 110 U/L (46-116); Anion Gap 10.6 mmol/L (3-11); BUN 32 mg/dL (9-23); Bilirubin, Total 0.40 mg/dL (0.2-1.2); CO2 27.4 mmol/L (20.0-31.0); Calcium 9.7 mg/dL (8.3-10.6); Chloride 102 mmol/L (98-107); Glucose 120 mg/dL (74-106); Potassium 3.6 mmol/L (3.5-5.1); Sodium 140 mmol/L (136-145); Total Protein 7.3 g/dL (5.7-8.2)
[2025-07-04 12:04] LABS: TSH (W/Ref FT4) 1.50 uIU/mL (0.55-4.78)
--- NOTE | 2025-07-04 14:48 | CMSP_ITS ---
Date of service: 07/04/25 Time of Service: 14:50 Care Management Safety Plan Status Status: Involuntary Reason for Wait Reason for Wait: Assessment/Screening Safety Plan Safety Plan: INVOLUNTARY FOR INPATIENT PSYCHIATRIC STABILIZATION.? Patient is appropriate in all interactions since arriving at [facility]; Pt has demonstrated appropriate coping and communication skills, has articulated his or her needs and concerns and is fully engaged during staff interactions. Safety plan has been established with patient, and care team, to adhere to patie nt goals, identify restrictions based on behavioral status, address nutrition, and determine allowed personal belongings, tools for hygiene and personal care. Determine level of activity including ambulation, level of supervision, visitors, and determine privileges based on behaviors and level of engagement by pt. SAFETY PLAN: 1. Will remain on suicide precautions, in paper clothes 2. Will remain in Zone B under direct supervision of one-on-one staff at all times provided by [employer]; RENETTA, EVENT MGR corporate wellness coordinator. 3. May have paper cups, plates, finger foods as well as a cardboard spoon with which to eat meals. 4. Follow [facility] Management of the Admitted Behavioral Health Patient policy. 5. Shower available in Zone B without restriction. 6. Personal belongings-soft items permitted at RN discretion. 7. Visitors-none at this time. 8. Activities: soft cart items approved per RN discretion. 9.? Bathroom available in Zone B without restriction. 10. Phone: limited to legal operations manager on [facility] cordless phone at RN discretion. Due to INVOLUNTARY status, patient is being held at [facility] by the Department of Mental Health ([facility]) until 2nd certification by [facility] Psychiatrist can be performed (within 24 hours). Staff will provide de-escalation support (CPI) as needed. If patient wishes to leave [facility], staff will contact [facility] Crisis Screener ([phone]) and [employer] Hand ([phone]) as soon as possible. In the event of elopement, notify [place] [employer] ([phone]). Patient is currently involuntarily at [facility]. [facility] Frontline X Ray Control Equipment Repairer will continue seeking placement. Please contact the [employer] Hand for any needed changes to Safety Plan. Safety plan has been provided to interdepartmental care team. Patient will be transported by [employer] at time of discharge.
--- NOTE | 2025-07-04 14:48 | PDOC.CMSAFE ---
Date of service: 07/04/25 Time of Service: 14:50 Care Management Safety Plan Status Status: Involuntary Reason for Wait Reason for Wait: Assessment/Screening Safety Plan Safety Plan: INVOLUNTARY FOR INPATIENT PSYCHIATRIC STABILIZATION.? Patient is appropriate in all interactions since arriving at [facility]; Pt has demonstrated appropriate coping and communication skills, has articulated his or her needs and concerns and is fully engaged during staff interactions. Safety plan has been established with patient, and care team, to adhere to patient goals, identify restrictions based on behavioral status, address nutrition, and determine allowed personal belongings, tools for hygiene and personal care. Determine level of activity including ambulation, level of supervision, visitors, and determine privileges based on behaviors and level of engagement by pt. SAFETY PLAN: 1. Will remain on suicide precautions, in paper clothes 2. Will remain in Zone B under direct supervision of one-on-one staff at all times provided by [employer]; RENETTA, SPEEDER FRAME TENDER behavioral health rn. 3. May have paper cups, plates, finger foods as well as a cardboard spoon with which to eat meals. 4. Follow [facility] Management of the Admitted Behavioral Health Patient policy. 5. Shower available in Zone B without restriction. 6. Personal belongings-soft items permitted at RN discretion. 7. Visitors-none at this time. 8. Activities: soft cart items approved per RN discretion. 9.? Bathroom available in Zone B without restriction. 10. Phone: limited to insurance legal assistant on [facility] cordless phone at RN discretion. Due to INVOLUNTARY status, patient is being held at [facility] by the Department of Mental Health ([facility]) until 2nd certification by [facility] Psychiatrist can be performed (within 24 hours). Staff will provide de-escalation support (CPI) as needed. If patient wishes to leave [facility], staff will contact [facility] Crisis Screener ([phone]) and Crm Marketing Manager ([phone]) as soon as possible. In the event of elopement, notify [place] [employer] ([phone]). Patient is currently involuntarily at [facility]. [facility] Frontline Commercial Relief Driver will continue seeking placement. Please contact the Crm Marketing Manager for any needed changes to Safety Plan. Safety plan has been provided to interdepartmental care team. Patient will be transported by [employer] at time of discharge.
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
--- NOTE | 2025-07-04 15:26 | ED.GENADUL_ITS ---
Discharge Plan Disposition Patient Disposition: Psychiatric Hospital[facility] Clinical Impression: Schizophrenia Primary Care Provider: Rosaura Landis ED Provider: Manan Meng Home Meds and New Rx's Prescriptions: No Action No Known Home Meds Discharge Instructions Additional Instructions: You are seen in the emergency department for hallucinations. No medications were changed. You were transferred to [facility]. Discharge Data Discharge Date/Time-TO BE ENTERED AT DEPARTURE: 07/07/25 10:23 HPI General Date/Time Provider Initiated Documentation: 07/04/25 10:11 . HPI Narrative: This 60-year-old male presents with warrant for paranoid and delusional behavior and reportedly was agitated and combative with a safe place when he was picked up. He has a history of schizophrenia and reportedly has been off his meds for an extended period of time. He went to mental health to be evaluated for return to work clearance from a mental health standpoint and they felt they were unable to clear him and actually issued a warrant for emergency medical assessment. Patient was making statements about the heading kittens and being a cow with severe animals. Mental health was concerned that he was delusional and psychotic. It looks like he was previously taking antipsychotics and self discontinued them because they made him feel terrible . Unclear as to whether or not patient uses any illicit substances. Related Data Home Medications ?Medication ?Instructions ?Recorded ?Confirmed Unknown [No Known Home Meds] 10/27/18 0 10/27/18 Allergies Allergy/AdvReac Type Severity Reaction Status Date / Time Penicillins Allergy Unknown Unverified 07/04/25 15:30 General Stated Complaint: PsychEval KAREN: 2 Exam Narrative Exam Narrative: Alert, disheveled 60-year-old male who is aware of the month and year, he is tangential and nonsensical and having what appears to be auditory hallucinations cardiac rate, no visible sign of trauma pupils are equal round reactive to light and accommodation no respiratory distress, confabulating Course Vital Signs Vital signs: Vital Signs Temperature 36.6 C 07/04/25 10:09 Pulse 88 07/04/25 10:09 Respiratory Rate 16 07/04/25 10:09 Blood Pressure 151/75 H 07/04/25 10:09 Pulse Oximetry 100 07/04/25 10:09 Temperature 36.6 C 07/04/25 10:09 Temperature Source Oral 07/04/25 10:09 Pulse 88 07/04/25 10:09 Respiratory Rate 16 07/04/25 10:09 Blood Pressure 151/75 H 07/04/25 10:09 Pulse Oximetry 100 07/04/25 10:09 Lab/Test Results Lab/Test Results: Laboratory Tests Range/Units 07/04/25 11:30 WBC (4.4-10.8) 10^3/uL 4.31 L RBC (4.36-5.78) 10^6/uL 4.03 L Hgb (13.5-17.5) g/dL 12.3 L Hct (40.0-50.0) % 36.6 L MCV (80-95) fL 91 MCH (27.0-33.0) pg 30.5 MCHC (32.0-36.0) % 33.6 RDW (11.8-14.1) % 13.2 Plt Count (130-400) 10^3/uL 141 MPV (8.0-11.0) fL 9.4 Immature Gran % % 0.5 Neutrophils % % 61.5 Lymphocytes % % 28.5 Monocytes % % 7.4 Eosinophils % % 1.4 Basophils % % 0.7 Nucleated RBC % (0.0-0.3) % 0.0 Absolute Neutrophils (1.2-6.7) 10^3/uL 2.65 Absolute Lymphocytes (1.2-3.4) 10^3/uL 1.23 Absolute Monocytes (0.1-0.8) 10^3/uL 0.32 Absolute Eosinophils (0.0-0.7) 10^3/uL 0.06 Absolute Basophils (0.0-0.2) 10^3/uL 0.03 Sodium (136-145) mmol/L 140 Potassium (3.5-5.1) mmol/L 3.6 Chloride (98-107) mmol/L 102 Carbon Dioxide (20.0-31.0) mmol/L 27.4 Anion Gap (3-11) mmol/L 10.6 BUN (9-23) mg/dL 32 H Creatinine (0.73-1.18) mg/dL 1.04 Est GFR (CKD-EPI 2020) (mL/min/1.73m2) 72.84 Glucose (74-106) mg/dL 120 H Calcium (8.3-10.6) mg/dL 9.7 Total Bilirubin (0.2-1.2) mg/dL 0.40 AST (<34) U/L 26 ALT (10-49) U/L 17 Alkaline Phosphatase (46-116) U/L 110 Total Protein (5.7-8.2) g/dL 7.3 Albumin (3.2-5.0) g/dL 4.3 TSH (0.55-4.78) uIU/mL 1.50 Ethyl Alcohol (<3) mg/dL < 3.0 Medical Decision Making Results: CBC CMP does not show evidence of acute abnormality ethanol: Negative Tox screen pending Assessment and plan: Patient presenting with concern for psychosis with a history of schizophrenia, was initially presenting combative and refusing to comply with basic blood work for medical screening. He started trying to box toss in the room and out of concern for our safety he was offered oral medications which he declined we therefore initiated IM Haldol and Ativan. Patient tolerated this well and is sleeping in room. I will order for some Zy prexa for when he wakes up if he is willing to take oral. I will also order a telepsych referral. Currently he is under a warrant for emergency assessment. He has not yet been evaluated by mental health as he has been sleeping secondary to chemical restraint out of concern for staff safety and unwillingness to comply with medical clearance. Staff did not feel he needed physical restraints so these were held. At time of reassessment patient's vitals are stable and he remains sleeping in room in an upright position. I will order an EKG so that if he needs more medications later this an option. Patient will need placement after formal mental health assessment from [facility] services. PFSH All Active Problems (Updated 07/06/25 @ 08:03 by Casper Miller MD) No significant past surgical history (Chronic) Schizophrenia (Chronic) Social History Smoking/Tobacco Use Status: Current every day Smoking risk assessment performed?: Yes Alcohol Intake: never Substance use type: does not use Do you feel safe at home: Yes Do you feel safe in your relationship?: Yes
--- NOTE | 2025-07-04 15:30 | RT.EKG_ITS ---
APPROVED REPORT Exam: Resting ECG Reason for Exam: psychosis Patient Location: E HR:60 bpm ECG Measurements Heart Rate 60 AXIS MI 164 P 96 QRSd 90 QRS 79 QT 440 T 73 QTc 438 Conclusion Sinus rhythm...normal P axis, V-rate 60- [address] elevation, anterolateral leads...ST >0.06mV, I aVL V2-V6 I have reviewed and interpreted ECG and agree with software generated interpretation.
--- NOTE | 2025-07-04 15:44 | NUR.NOTE ---
Nursing Note: 11:15 Patient was in room with VSP and Cristina. Patient has rambling conversation and flight of ideas. Patient was agreeable for blood draw. I attempted blood draw without success. Provider, Leona Alcaraz had ordered IM Medication. Patient states he doesnt want any needles. I did work to have medications changed to PO alternative to which he threw them in the room. At this point, IM Medication was given. Patient was still agitated and blood draw was deferred.
[2025-07-04 19:00] VITALS: RESP 16
[2025-07-05 05:30] LABS: Glucose Negative (Negative)
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
[2025-07-05 12:07] VITALS: BP 126/83; PULSE 62; RESP 18; O2SAT 99
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
--- NOTE | 2025-07-05 19:26 | CMSP_ITS ---
Date of service: 07/05/25 Time of Service: 19:27 Care Management Safety Plan Status Status: Involuntary Reason for Wait Reason for Wait: Inpatient Admission Safety Plan Safety Plan: INVOLUNTARY FOR INPATIENT PSYCHIATRIC STABILIZATION.? Patient is appropriate in all interactions since arriving at [facility]; Pt has demonstrated appropriate coping and communication skills, has articulated his or her needs and concerns and is fully engaged during staff interactions. Safety plan has been established with patient, and care team, to adhere to patient goals, identify restrictions based on behavioral status, address nutrition, and determine allowed personal belongings, tools for hygiene and personal care. Determine level of activity including ambulation, level of supervision, visitors, and determine privileges based on behaviors and level of engagement by pt. SAFETY PLAN: 1. Will remain on suicide precautions, in paper clothes 2. Will remain in Zone B under direct supervision of one-on-one staff at all times provided by [employer]; RENETTA, CLIENT EXECUTIVE senior talent acquisition specialist. 3. May have paper cups, plates, finger foods as well as a cardboard spoon with which to eat meals. 4. Follow [facility] Management of the Admitted Behavioral Health Patient policy. 5. Shower available in Zone B without restriction. 6. Personal belongings-soft items permitted at RN discretion. 7. Visitors-none at this time. 8. Activities: soft cart items approved per RN discretion. 9.? Bathroom available in Zone B without restriction. 10. Phone: limited to litigation legal assistant on [facility] cordless phone at RN discretion. Due to INVOLUNTARY status, patient is being held at [facility] by the Department of Mental Health ([facility]) until 2nd certification by [facility] Psychiatrist can be performed (within 24 hours). Staff will provide de-escalation support (CPI) as needed. If patient wishes to leave [facility], staff will contact [facility] Crisis Screener ([phone]) and Cake Puller ([phone]) as soon as possible. In the event of elopement, notify [place] [employer] Police ([phone]). Patient is currently involuntarily at [facility]. [facility] Frontline Customer Service Trainer will continue seeking placement. Please contact the Cake Puller for any needed changes to Safety Plan. Safety plan has been provided to interdepartmental care team. Patient will be transported by [facility] at time of discharge.
--- NOTE | 2025-07-05 19:26 | PDOC.CMSAFE ---
Date of service: 07/05/25 Time of Service: 19:27 Care Management Safety Plan Status Status: Involuntary Reason for Wait Reason for Wait: Inpatient Admission Safety Plan Safety Plan: INVOLUNTARY FOR INPATIENT PSYCHIATRIC STABILIZATION.? Patient is appropriate in all interactions since arriving at [facility]; Pt has demonstrated appropriate coping and communication skills, has articulated his or her needs and concerns and is fully engaged during staff interactions. Safety plan has been established with patient, and care team, to adhere to patient goals, identify restrictions based on behavioral status, address nutrition, and determine allowed personal belongings, tools for hygiene and personal care. Determine level of activity including ambulation, level of supervision, visitors, and determine privileges based on behaviors and level of engagement by pt. SAFETY PLAN: 1. Will remain on suicide precautions, in paper clothes 2. Will remain in Zone B under direct supervision of one-on-one staff at all times provided by [employer]; RENETTA, NEW CAR MAKE READY MECHANIC fine arts instructor. 3. May have paper cups, plates, finger foods as well as a cardboard spoon with which to eat meals. 4. Follow [facility] Management of the Admitted Behavioral Health Patient policy. 5. Shower available in Zone B without restriction. 6. Personal belongings-soft items permitted at RN discretion. 7. Visitors-none at this time. 8. Activities: soft cart items approved per RN discretion. 9.? Bathroom available in Zone B without restriction. 10. Phone: limited to legal support manager on [facility] cordless phone at RN discretion. Due to INVOLUNTARY status, patient is being held at [facility] by the Department of Mental Health ([facility]) until 2nd certification by [facility] Psychiatrist can be performed (within 24 hours). Staff will provide de-escalation support (CPI) as needed. If patient wishes to leave [facility], staff will contact [facility] Crisis Screener ([phone]) and Ballistics Teacher ([phone]) as soon as possible. In the event of elopement, notify [place] Police ([phone]). Patient is currently involuntarily at [facility]. [facility] Frontline Crop Quantitative Geneticist will continue seeking placement. Please contact the Ballistics Teacher for any needed changes to Safety Plan. Safety plan has been provided to interdepartmental care team. Patient will be transported by [employer] at time of discharge.
--- NOTE | 2025-07-05 19:27 | CMPROGNOTE_ITS ---
Date of service: 07/05/25 Time of Service: 19:27 Care Management Progress Note Progress Note Text Progress Note Text: CM met with ED RN to discuss Ronak's plan of care; [facility] had been in to meet with Ronak but was not available for the huddle. Per report, Ronak engaged well with [facility] this morning. He has a history of schizophrenia and presented with paranoia and delusions. He is being held on an emergency evaluation hold, and his second certification was upheld this afternoon. [facility] sent referrals to facilities, and he is being considered for admission at [place]. [facility] will coordinate transportation once he is accepted. Safety plan in place; CM will con tinue to follow. Social Determinants of Health Screening Will the Patient Participate in the Screening?: Unable to obtain
--- NOTE | 2025-07-05 19:27 | PDOC.CMPRO ---
Date of service: 07/05/25 Time of Service: 19:27 Care Management Progress Note Progress Note Text Progress Note Text: CM met with ED RN to discuss Ronak's plan of care; [facility] had been in to meet with Ronak but was not available for the huddle. Per report, Ronak engaged well with [facility] this morning. He has a history of schizophrenia and presented with paranoia and delusions. He is being held on an emergency evaluation hold, and his second certification was upheld this afternoon. [facility] sent referrals to facilities, and he is being considered for admission at [place]. [facility] will coordinate transportation once he is accepted. Safety plan in place; CM will continue to follow. Social Determinants of Health Screening Will the Patient Participate in the Screening?: Unable to obtain
--- NOTE | 2025-07-05 21:27 | MHPN_ITS ---
Date of service: 07/05/25 Time of Service: 13:00 Mental Health Emergency Note Release [facility] release signed:: No Reason for Visit The client is known to [facility] and previously received services through the [facility] program. The client reports that he has been hospitalized involuntary in the past, however cannot recall when. The client presented to [facility] ED on 07/04 on a mental health warrant. 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 In the last 2 weeks has the pt presented for ES prior to today?: No Client Information Client is: New CALM/Risk Level Does risk to harm exist?: yes. Access to means: No. Impression The client is a 60-year-old single male. He was previously employed at [employer], but is not currently working. The client has been on [facility] radar for the past year. The client is standing in the common area of [facility] zone b. The client engages with the psychiatrist, however is persevering on going home to tend to his house. Please see 2nd certification for more information. Plan/Disposition Recommended Disposition: Hospitalization No. Plan: The 2nd certification was passed. The client will remain at [facility] ED on EE status pending placement in an inpatient facility. The client will be re-assessed 2x daily until placement is secured or the client is able to be safety planned back to the community. Person reported agreement to plan: No Reports/communication Outcome discussed with: ED/Personnel (Verbal completed with [facility] b staff)
--- NOTE | 2025-07-05 21:27 | PDOC.MHPN2 ---
Date of service: 07/05/25 Time of Service: 13:00 Mental Health Emergency Note Release [facility] release signed:: No Reason for Visit The client is known to [facility] and previously received services through the [facility] program. The client reports that he has been hospitalized involuntary in the past, however cannot recall when. The client presented to [facility] ED on 07/04 on a mental health warrant. 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 In the last 2 weeks has the pt presented for ES prior to today?: No Client Information Client is: New CALM/Risk Level Does risk to harm exist?: yes. Access to means: No. Impression The client is a 60-year-old single male. He was previously employed at [employer], but is not currently working. The client has been on [facility] radar for the past year. The client is standing in the common area of [facility] zone b. The client engages with the psychiatrist, however is persevering on going home to tend to his house. Please see 2nd certification for more information. Plan/Disposition Recommended Disposition: Hospitalization No. Plan: The 2nd certification was passed. The client will remain at [facility] ED on EE status pending placement in an inpatient facility. The client will be re-assessed 2x daily until placement is secured or the client is able to be safety planned back to the community. Person reported agreement to plan: No Reports/communication Outcome discussed with: ED/Personnel (Verbal completed with [facility] b staff)
[2025-07-06 07:54] VITALS: BP 143/92; PULSE 78; O2SAT 98
--- NOTE | 2025-07-06 08:02 | ED.PSYCHBOAR ---
Date of service: 07/06/25 Time of Service: 08:02 Psychiatric Border Handoff Update Brief Story: 60-year-old male here on ED status for decompensated schizophrenia, no new acute issues, will continue to monitor until safe disposition found. Status: EE Able to leave: no, this patient is an EE Mediation Reconciliation performed: Yes Code Status ordered: Yes Diet ordered: Yes Discharge Plan Discharge Details Chief Complaint: PsychEval Clinical Impression: Schizophrenia Primary Care Provider: Rosaura Landis ED Provider: Casper Miller Home Meds and New Rx's Prescriptions: No Action No Known Home Meds
--- NOTE | 2025-07-06 08:40 | CMSP_ITS ---
Date of service: 07/06/25 Time of Service: 08:40 Care Management Safety Plan Status Status: Involuntary Reason for Wait Reason for Wait: Inpatient Admission Safety Plan Safety Plan: INVOLUNTARY FOR INPATIENT PSYCHIATRIC STABILIZATION.? Patient is appropriate in all interactions since arriving at [facility]; Pt has demonstrated appropriate coping and communication skills, has articulated his or her needs and concerns and is fully engaged during staff interactions. Safety plan has been established with patient, and care team, to adhere to patient goals, identify restrictions based on behavioral status, address nutrition, and determine allowed personal belongings, tools for hygiene and personal care. Determine level of activity including ambulation, level of supervision, visitors, and determine privileges based on behaviors and level of engagement by pt. Interdisciplinary huddle was held in Zone B, attending was TASH(Ash). RN Medical Laboratory Specialist(Valerie), ZnB LESLYE Shirley, MC KAY STITCHER Lydia and CM RN/Rianna. Patient is currently EE'd and accepted to [place] tomorrow. Emanuel Hollis will be here at 1000am. SAFETY PLAN: 1. Will remain on suicide precautions, in paper clothes 2. Will remain in Zone B under direct supervision of one-on-one staff at all times provided by [employer]; RENETTA, DUST COLLECTOR clinical document improvement educator. 3. May have paper cups, plates, finger foods as well as a cardboard spoon with which to eat meals. 4. Follow [facility] Management of the Admitted Behavioral Health Patient policy. 5. Shower available in Zone B without restriction. 6. Personal belongings-soft items permitted at RN discretion. 7. Visitors-none at this time. 8. Activities: soft cart items approved per RN discretion. 9.? Bathroom available in Zone B without restriction. 10. Phone: limited to legal archivist on [facility] cordless phone at RN discretion. Due to INVOLUNTARY status, patient is being held at [facility] by the Department of Mental Health ([facility]) until 2nd certification by [facility] Psychiatrist can be performed (within 24 hours). Staff will provide de-escalation support (CPI) as needed. If patient wishes to leave [facility], staff will contact [facility] Crisis Screener ) and Manager Equipment ([phone]) as soon as possible. In the event of elopement, notify [facility] Police ([phone]). Patient is currently involuntarily at [facility]. [facility] Frontline Blast Furnace Checker will continue seeking placement. Please contact the Manager Equipment for any needed changes to Safety Plan. Safety plan has been provided to interdepartmental care team. Patient will be transported by fashion director party plan sales at time of discharge.
--- NOTE | 2025-07-06 08:40 | PDOC.CMSAFE ---
Date of service: 07/06/25 Time of Service: 08:40 Care Management Safety Plan Status Status: Involuntary Reason for Wait Reason for Wait: Inpatient Admission Safety Plan Safety Plan: INVOLUNTARY FOR INPATIENT PSYCHIATRIC STABILIZATION.? Patient is appropriate in all interactions since arriving at [facility]; Pt has demonstrated appropriate coping and communication skills, has articulated his or her needs and concerns and is fully engaged during staff interactions. Safety plan has been established with patient, and care team, to adhere to patient goals, identify restrictions based on behavioral status, address nutrition, and determine allowed personal belongings, tools for hygiene and personal care. Determine level of activity including ambulation, level of supervision, visitors, and determine privileges based on behaviors and level of engagement by pt. Interdisciplinary huddle was held in Zone B, attending was TASH(Ash). RN Water Tanker Driver(Valerie), ZnB LESLYE Shirley, NURSES MEDICAL ASSISTANTS PHLEBOTOMISTS Lydia and CM RN/Rianna. Patient is currently EE'd and accepted to [place] tomorrow. Emanuel Hollis will be here at 1000am. SAFETY PLAN: 1. Will remain on suicide precautions, in paper clothes 2. Will remain in Zone B under direct supervision of one-on-one staff at all times provided by [employer]; RENETTA, ROAD GRADER humanities professor. 3. May have paper cups, plates, finger foods as well as a cardboard spoon with which to eat meals. 4. Follow [facility] Management of the Admitted Behavioral Health Patient policy. 5. Shower available in Zone B without restriction. 6. Personal belongings-soft items permitted at RN discretion. 7. Visitors-none at this time. 8. Activities: soft cart items approved per RN discretion. 9.? Bathroom available in Zone B without restriction. 10. Phone: limited to litigation paralegal on [facility] cordless phone at RN discretion. Due to INVOLUNTARY status, patient is being held at [facility] by the Department of Mental Health ([facility]) until 2nd certification by [facility] Psychiatrist can be performed (within 24 hours). Staff will provide de-escalation support (CPI) as needed. If patient wishes to leave [facility], staff will contact [facility] Crisis Screener ([phone]) and Elevator Mechanic Apprentice ([phone]) as soon as possible. In the event of elopement, notify [facility] Police ([phone]). Patient is currently involuntarily at [facility]. [facility] Frontline Lace Roller Operator will continue seeking placement. Please contact the Elevator Mechanic Apprentice for any needed changes to Safety Plan. Safety plan has been provided to interdepartmental care team. Patient will be transported by manager msw at time of discharge.
--- NOTE | 2025-07-06 15:07 | PDOC.MHPN2 ---
Date of service: 07/06/25 Time of Service: 13:46 Mental Health Emergency Note Release [facility] release signed:: Yes Reason for Visit The client is known to [facility] and previously received services through the [facility] program. The client is not known to this clinician. The client did not disclose previous hospitalization. The client presented to [facility] ED on 07/04 on a mental health warrant. This video games storywriter competes first daily assessment of the day via face to face. In the last 2 weeks has the pt presented for ES prior to today?: No Client Information Client is: New Well Housed: Yes CALM/Risk Level Does risk to harm exist?: yes. Access to means: No. Risk: High Risk Duty to warn indicated: No Asssessment/Mental Status Appearance: Disheveled Attitude: Guarded Behavior: Agitated Speech: Incoherent Affect: Cogruent with mood Mood: Irritable Thought process: Poverty of content Hallucinations: No Delusions: No Attention: Unremarkable Perception: Not impaired Orientation: Fully orientated Memory: Intact Insight: Poor Judgement: Poor Neurovegetative Symptoms Sleep: No change Appetitie: No change Interests: No change Energy: No change Libido: Not applicable Impression The client is a 60-year-old biological male. The client was seen standing at the doorway of his [facility] B room. This video games storywriter introduced themselves. The client was hard to understand and stated what sounded to be I don't know [facility] Human Services as he started to shut his door. This video games storywriter asked the client if he was willing to talk to this video games storywriter. The client stated no and shut the door. Per collateral report of [facility] B nurse, the client has not sat down since 4am this morning. Plan/Disposition Recommended Disposition: Hospitalization facilities contacted. Plan: The client will remain at [facility] ED on EE status pending placement in an inpatient facility. The client will be re-assessed twice a day until placement is secured, or the client is able to be safety planned back to the community. Reports/communication Outcome discussed with: ED/Personnel
[2025-07-06 16:56] LABS: Cannabinoids THC Negative (Negative)
[2025-07-06 19:52] VITALS: BP 147/92; PULSE 78; RESP 16; O2SAT 98
[2025-07-07 08:07] VITALS: BP 145/83; PULSE 71; RESP 18; O2SAT 99
--- NOTE | 2025-07-07 09:31 | ED.PROG1_ITS ---
Date of service: 07/07/25 Time of Service: 09:31 Psychiatric Border Handoff Update Brief Story: 60-year-old male with delusions no active behavioral issues last shift. Patient was accepted to [place]. I send transfer paperwork to have the patient transferred to the [facility]. Status: EE Able to leave: no, this patient is an EE Mediation Reconciliation performed: Yes Code Status ordered: Yes Diet ordered: Yes Discharge Plan Disposition Patient Disposition: Psychiatric [facility] Clinical Impression: Schizophrenia Primary Care Provider: Rosaura Landis ED Provider: Manan Meng Home Meds and New Rx's Prescriptions: No Action No Known Home Meds Discharge Instructions Additional Instructions: You are seen in the emergency department for hallucinations. No medications were changed. You were transferred to [facility].
--- NOTE | 2025-07-07 17:54 | CMPROGNOTE_ITS ---
Date of service: 07/07/25 Time of Service: 17:54 Care Management Progress Note Progress Note Text Progress Note Text: CM huddled with ED RN, discharge coordinator, RN purification supervisor, ED MD and [facility] clinician to discuss Ronak's plan of care. Per report, Ronak was accepted at [facility] today, and transferred there this morning via Trailer Driver. He was an involuntary patient, therefore [facility] coordinated transport. CM will continue to follow. Social Determinants of Health Screening Will the Patient Participate in the Screening?: Unable to obtain
--- NOTE | 2025-07-07 17:54 | PDOC.CMPRO ---
Date of service: 07/07/25 Time of Service: 17:54 Care Management Progress Note Progress Note Text Progress Note Text: CM huddled with ED RN, medical charge entry specialist, RN telephone order supervisor, ED MD and [facility] clinician to discuss Ronak's plan of care. Per report, Ronak was accepted at [facility] today, and transferred there this morning via Community Health Representative. He was an involuntary patient, therefore [facility] coordinated transport. CM will continue to follow. Social Determinants of Health Screening Will the Patient Participate in the Screening?: Unable to obtain
== END 2025-07-07 10:23 ==
PROVIDERS: Physician Assistant; Emergency Provider Emergency Medicine; PCP Nurse Practitioner Family
DX: F20.9 Schizophrenia, unspecified (principal)
CPT/HCPCS: 99285 ×2; 96374; 96375; 00123; 36415; 80053; 80307; 93005; G0378; 80320; 81003; 84443; 85025; 93010; J1630; J2060